=== PATIENT | female | born 2000 | race Caucasian/White ===

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

== ENCOUNTER 2021-01-19 00:26 | Emergency (ER) | payer MEDICAID ==
[~2021-01-19] VITALS: Ht 157 cm; Wt 64.5 kg
[~2021-01-19 00:26] MED LIST changes: +PERM60CR4 TP
[2021-01-19 00:44] LABS: BILIRUBIN,URINE NEGATIVE (NEGATIVE); CLARITY,URINE CLEAR; COLOR,URINE YELLOW; GLUCOSE, URINE (UA) NEGATIVE (NEGATIVE); KETONES,URINE NEGATIVE (NEGATIVE); LEUKOCYTE ESTERASE ,URINE 2+ (NEGATIVE); NITRITE,URINE POSITIVE (NEGATIVE); PH,URINE 6.5 (5-9); PROTEIN,URINE TRACE (NEGATIVE)
[2021-01-19 00:52] LABS: BACTERIA,URINE LARGE /HPF; SQUAMOUS EPITHELIAL CELL,UR 0-2 /HPF; URINE OTHER WBC CLUMPS /HPF; WBC,URINE 25-50 /HPF
[2021-01-19] MEDS ORDERED: ONDANSETRON 4 MG/2 ML (SDV) Z0FRAN IVP ONE (01:15)
[2021-01-19] MEDS ORDERED: KETOROLAC 30 MG/ML VIAL IVP ONE (01:15)
[2021-01-19] MEDS ORDERED: cefTRIAXone 1,000 MG in WATER (STERILE) FOR INJECTION 10 ML IV ONE (01:15)
[2021-01-19] MEDS ORDERED: LACTATED RINGERS 1,000 ML IV ONE (01:15)
--- NOTE | 2021-01-19 01:20 | ED Back Pain ---
General Chief Complaint: Back Problems Stated Complaint: ABD PAIN Nursing Triage Note: WOKE UP WITH LEFT FLANK PAIN RADIATING TO LEFT LOWER ABDOMEN. WORSE X2 HRS. DENIES INJURY. Source of Information: Patient Exam Limitations: No Limitations History of Present Illness Date Seen by Provider: Jan 19, 2021 Time Seen by Provider: 00:37 Initial Comments Patient presents ER by private conveyance with chief complaint that today she started experiencing some left flank and low left lower quadrant abdomen pain and pressure. Dysuria. No fevers or chills. She is having nausea but no vomiting. She rates her pain is about a 9 out of 10. She has not taken anything for it. No history of kidney stones. No history of abdominal surgeries except for a D&C 2 months ago for miscarriage. Allergies and Home Medications Allergies Coded Allergies: No Known Drug Allergies (Unverified , 09/07/13) Home Medications Cefdinir 300 Mg Capsule, 300 MG PO BID Prescribed by: POLINA VIDES on 01/19/21 0328 Hydrocodone/Acetaminophen 1 Each Tablet, 1 TAB PO Q6H PRN for PAIN-MODERATE (5- 7) Prescribed by: POLINA VIDES on 01/19/21 0330 Hydroxyzine Pamoate 25 Mg Capsule, 25 MG PO Q6H PRN for ITCHING AND RASH Prescribed by: POLINA VIDES on 12/14/20 1037 Ondansetron 4 Mg Tab.rapdis, 4 MG PO Q6H PRN for NAUSEA/VOMITING Prescribed by: POLINA VIDES on 01/19/21 0328 Permethrin 60 Gm Cream..g., 60 GM TP q 14 days Prescribed by: POLINA VIDES on 12/14/20 1037 Patient Home Medication List Home Medication List Reviewed: Yes Review of Systems Constitutional: No chills, No diaphoresis, No fever, No malaise EENTM: No ear discharge, No hearing loss Respiratory: No cough, No short of breath Cardiovascular: No chest pain, No palpitations Gastrointestinal: abdominal pain; No constipation, No diarrhea; nausea; No vomiting Genitourinary: see HPI; No discharge; dysuria : No LMP: Jan 04, 2021 Control/STD Prophylaxis: None Musculoskeletal: back pain (Left flank); No joint pain All Other Systems Reviewed Negative Unless Noted: Yes Past Ljfhyfl-Gmlvrh-Fcjwhk Hx Patient Social History Tobacco Use?: Yes Tobacco type used: Cigarettes Smoking Status: Current Everyday Smoker Substance use?: Yes Substance type: Marijuana Substance frequency: Daily Alcohol Use?: Yes Alcohol Frequency: Once in a while Pt feels they are or have been: No Immunizations Up To Date Tetanus Booster (TDap): Less than 5yrs PED Vaccines UTD: Yes Seasonal Allergies Seasonal Allergies: No Past Medical History Surgery/Hospitalization HX: DENIES Surgeries: No Respiratory: No Cardiac: No Neurological: No Last Menstrual Period: Jan 05, 2021 Genitourinary: No Gastrointestinal: No Musculoskeletal: No Endocrine: No HEENT: No Cancer: No Did You Recieve Any Treatments: No Psychosocial: Yes ADD/ADHD, Anxiety, Depression Integumentary: No Blood Disorders: No Adverse Reaction/Blood Tranf: No Family Medical History No Pertinent Family Hx Physical Exam Vital Signs Vital Signs - First Documented 01/19/21 00:32 Temp 36.6 Pulse 94 Resp 18 B/P (MAP) 135/62 (86) Pulse Ox 97 O2 Delivery Room Air Capillary Refill : Less Than 3 Seconds Height, Weight, BMI Height: 5'4.00" Weight: 145lbs. oz. 65.422610ek; 26.00 BMI Method:Stated General Appearance: Anxious, Mild Distress HEENT: PERRL/EOMI, Pharynx Normal, Moist Mucous Membranes Neck: Normal Inspection, Non Tender Cardiovascular: Regular Rate, Rhythm (90s), Normal Peripheral Pulses Respiratory: Lungs Clear, Normal Breath Sounds, No Accessory Muscle Use Gastrointestinal: Normal Bowel Sounds, Soft, Tenderness (Left flank and left lower quadrant.) Back: Normal Inspection, No Vertebral Tenderness, CVA Tenderness (L) (To percussion) Extremity: Normal Capillary Refill, Normal Inspection, Normal Range of Motion, Non Tender, No Calf Tenderness Neurologic/Psychiatric: Alert, Oriented x3, No Motor/Sensory Deficits Skin: Normal Color, Warm/Dry Progress/Results/Core Measures Results/Orders Lab Results Laboratory Tests Test 01/19/21 00:31 01/19/21 01:18 Range/Units Urine Color YELLOW Urine Clarity CLEAR Urine pH 6.5 5-9 Urine Specific [place] <=1.005 1.016-1.022 Urine Protein TRACE H NEGATIVE Urine Glucose (UA) NEGATIVE NEGATIVE Urine Ketones NEGATIVE NEGATIVE Urine Nitrite POSITIVE H NEGATIVE Urine Bilirubin NEGATIVE NEGATIVE Urine Urobilinogen 1.0 < = 1.0 MG/DL Urine Leukocyte Esterase 2+ H NEGATIVE Urine RBC (Auto) NEGATIVE NEGATIVE Urine RBC NONE /HPF Urine WBC 25-50 H /HPF Urine Squamous Epithelial Cells 0-2 /HPF Urine Crystals NONE /LPF Urine Bacteria LARGE H /HPF Urine Casts NONE /LPF Urine Mucus NEGATIVE /LPF Urine Other WBC CLUMPS /HPF Urine Culture Indicated YES White Blood Count 8.4 4.3-11.0 10^3/uL Red Blood Count 4.45 3.80-5.11 10^6/uL Hemoglobin 12.2 11.5-16.0 g/dL Hematocrit 37 35-52 % Mean Corpuscular Volume 84 80-99 fL Mean Corpuscular Hemoglobin 27 25-34 pg Mean Corpuscular Hemoglobin Concent 33 32-36 g/dL Red Cell Distribution Width 13.1 10.0-14.5 % Platelet Count 245 130-400 10^3/uL Mean Platelet Volume 10.3 9.0-12.2 fL Immature Granulocyte % (Auto) 1 % Neutrophils (%) (Auto) 71 42-75 % Lymphocytes (%) (Auto) 15 12-44 % Monocytes (%) (Auto) 12 0-12 % Eosinophils (%) (Auto) 1 0-10 % Basophils (%) (Auto) 0 0-10 % Neutrophils # (Auto) 6.0 1.8-7.8 10^3/uL Lymphocytes # (Auto) 1.3 1.0-4.0 10^3/uL Monocytes # (Auto) 1.0 0.0-1.0 10^3/uL Eosinophils # (Auto) 0.1 0.0-0.3 10^3/uL Basophils # (Auto) 0.0 0.0-0.1 10^3/uL Immature Granulocyte # (Auto) 0.0 0.0-0.1 10^3/uL Sodium Level 137 135-145 MMOL/L Potassium Level 3.7 3.6-5.0 MMOL/L Chloride Level 102 98-107 MMOL/L Carbon Dioxide Level 22 21-32 MMOL/L Anion Gap 13 5-14 MMOL/L Blood Urea Nitrogen 9 7-18 MG/DL Creatinine 0.86 0.60-1.30 MG/DL Estimat Glomerular Filtration Rate > 60 BUN/Creatinine Ratio 10 Glucose Level 86 70-105 MG/DL Calcium Level 8.7 8.5-10.1 MG/DL Corrected Calcium 8.6 8.5-10.1 MG/DL Total Bilirubin 0.5 0.1-1.0 MG/DL Aspartate Amino Transf (AST/SGOT) 15 5-34 U/L Alanine Aminotransferase (ALT/SGPT) 12 0-55 U/L Alkaline Phosphatase 70 40-136 U/L Total Protein 7.1 6.4-8.2 GM/DL Albumin 4.1 3.2-4.5 GM/DL My Orders Orders - POLINA VIDES Ua Culture If Indicated (01/19/21 00:27) Urine Bedside (01/19/21 00:27) Urine Culture (01/19/21 00:31) Ed Iv/Invasive Line Start (01/19/21 01:14) Lactated Ringers (Lr 1000 Ml Iv Solution (01/19/21 01:15) Ketorolac Injection (Toradol Injection) (01/19/21 01:15) Ceftriaxone (Rocephin) (01/19/21 01:15) Cbc With Automated Diff (01/19/21 01:14) Comprehensive Metabolic Panel (01/19/21 01:14) Ct Abd/Pelvis Wo(Kidney Stone) (01/19/21 01:14) Ondansetron Injection (Zofran Injectio (01/19/21 01:15) Medications Given in ED Vital Signs/I&O 01/19/21 01/19/21 00:32 03:35 Temp 36.6 36.7 Pulse 94 80 Resp 18 18 B/P (MAP) 135/62 (86) 128/57 (86) Pulse Ox 97 99 O2 Delivery Room Air Room Air Blood Pressure Mean: 86 Progress Progress Note #1: Time: 01:19 Progress Note Pyelonephritis versus kidney stone. She has heart rate above 90 and if she has a white count she potentially be septic so if that is the case we would offer her stay in the hospital if she wants it. We will give her a dose of Rocephin, a liter of fluids to help flush things along and get a CT to rule out kidney stones. Labs. Zofran for nausea. Progress Note #2: Time: 03:31 Progress Note The patient is pain-free and her heart rates in the 70s. She is much more comfortable. We did discuss observation in the hospital versus going home and since she is feeling much better the patient is adamant she would prefer to go home. We will put her out on cefdinir with some nausea and pain medicines. Diagnostic Imaging Diagonstic Imaging: CT Plain Films/CT/US/NM/MRI: abdomen, pelvis Comments Left hydroureter without stone. Cannot exclude passing of a kidney stone. [facility], [place] NAME: WES JALLOH [facility] REC#: [id number] PT STATUS: DEP ER : 2000 PHYSICIAN: POLINA VIDES MD ADMIT DATE: 01/19/21/ER Signed Date of Exam:01/19/21 CT ABD/PELVIS WO(KIDNEY STONE) PROCEDURE: CT urinary tract, rule out kidney stone. TECHNIQUE: Multiple contiguous axial images were obtained through the abdomen and pelvis without the use of intravenous contrast. Auto Exposure Controls were utilized during the CT exam to meet ALARA standards for radiation dose reduction. INDICATION: Left-sided flank pain. COMPARISON: None. FINDINGS: The heart is unremarkable. The lung bases are clear. There is mild left-sided hydroureteronephrosis without evidence of obstructing calculi. No perinephric fat stranding is seen bilaterally. The right kidney is unremarkable. The liver, spleen, pancreas, and adrenal glands have a normal noncontrast CT appearance. There is no pathologically enlarged mesenteric or retroperitoneal adenopathy. The bowel loops are nondilated. The appendix is visualized in the right lower quadrant and has a normal appearance. A small amount of free fluid is seen in the pelvis. There is no free air. No acute osseous abnormalities. The urinary bladder is nondistended. There is no free air, loculated collection, or adenopathy in the pelvis. IMPRESSION: 1. Mild left-sided hydroureteronephrosis which may represent recently passed calculus. 2. Small amount of free fluid in the pelvis, likely physiologic. Agree with overnight report. Dictated by: Dictated on workstation # [id number] Dict: 01/19/21 0735 Trans: 01/19/21 0749 [facility] [id number] Interpreted by: ANDI COHEN DO Electronically signed by: ANDI COHEN DO 01/19/21 0749 Reviewed: Reviewed [place] Study, Reviewed by Me Departure Impression Primary Impression: Pyelonephritis Disposition: 01 HOME, SELF-CARE Condition: Stable Departure-Patient Inst. Decision time for Depature: 02:36 Referrals: SOFI MESA MD (PCP/Family) Primary Care Physician Patient Instructions: Kidney Infection (DC) Add. Discharge Instructions: Drink lots of fluids. Cefdinir 1 capsule twice a day for the next 10 days. AZO twice a day as necessary for urinary pain. This will turn your urine a dark orange or red color. Zofran 1 tablet every 6 hours as necessary for nausea and/or vomiting. Tylenol 650 mg every 8 hours as necessary for pain. Ibuprofen 800 mg every 8 hours as necessary for pain. Hydrocodone 1 tablet every 6 hours as necessary for severe breakthrough pain. All discharge instructions reviewed with patient and/or family. Voiced understanding. Scripts Hydrocodone/Acetaminophen (Hydrocodone-Acetamin 5-325 mg) 1 Each Tablet 1 TAB PO Q6H PRN for PAIN-MODERATE (5-7), #8 TAB 0 Refills Prov: POLINA VIDES 01/19/21 Ondansetron (Ondansetron Odt) 4 Mg Tab.rapdis 4 MG PO Q6H PRN for NAUSEA/VOMITING, #8 TAB 0 Refills Prov: POLINA VIDES 01/19/21 Cefdinir (Cefdinir) 300 Mg Capsule 300 MG PO BID for 10 Days, #20 CAP 0 Refills Prov: POLINA VIDES 01/19/21 Work/School Note: Work Release Form Date Seen in the Emergency Department: Jan 19, 2021 Return to Work: Jan 21, 2021 Restrictions: No Restrictions POLINA VIDES Jan 19, 2021 01:20
[2021-01-19 01:36] LABS: BASOPHILS % (AUTO) 0 % (0-10); EOSINOPHILS # (AUTO) 0.1 10^3/uL (0.0-0.3); EOSINOPHILS % (AUTO) 1 % (0-10); HEMATOCRIT 37 % (35-52); HEMOGLOBIN 12.2 g/dL (11.5-16.0); LYMPHOCYTES # (AUTO) 1.3 10^3/uL (1.0-4.0); LYMPHOCYTES % (AUTO) 15 % (12-44); MEAN CORPUSCULAR HEMOGLOBIN 27 pg (25-34); MEAN CORPUSCULAR HGB CONC 33 g/dL (32-36); MEAN CORPUSCULAR VOLUME 84 fL (80-99); MEAN PLATELET VOLUME 10.3 fL (9.0-12.2); MONOCYTES % (AUTO) 12 % (0-12); NEUTROPHILS % (AUTO) 71 % (42-75); PLATELET COUNT 245 10^3/uL (130-400); WHITE BLOOD COUNT 8.4 10^3/uL (4.3-11.0)
[2021-01-19 01:51] LABS: ALBUMIN 4.1 GM/DL (3.2-4.5)
[2021-01-19 01:52] LABS: CHLORIDE 102 MMOL/L (98-107); POTASSIUM 3.7 MMOL/L (3.6-5.0); SODIUM 137 MMOL/L (135-145)
[2021-01-19 01:53] LABS: CALCIUM 8.7 MG/DL (8.5-10.1)
[2021-01-19 01:54] LABS: GLUCOSE 86 MG/DL (70-105); TOTAL PROTEIN 7.1 GM/DL (6.4-8.2)
[2021-01-19 01:55] LABS: CARBON DIOXIDE 22 MMOL/L (21-32)
[2021-01-19 01:56] LABS: BILIRUBIN,TOTAL 0.5 MG/DL (0.1-1.0)
[2021-01-19 01:57] LABS: ALKALINE PHOSPHATASE 70 U/L (40-136); CREATININE SERUM 0.86 MG/DL (0.60-1.30); GFR ESTIMATED > 60
[2021-01-19 01:59] LABS: BUN/CREATININE RATIO 10
[2021-01-19 02:00] LABS: ALANINE AMINOTRANSFERASE 12 U/L (0-55)
[2021-01-19] MEDS ORDERED: CEFD300C3 PO (03:28)
[2021-01-19] MEDS ORDERED: ONDA4TAB11 PO (03:28)
[2021-01-19] MEDS ORDERED: ACHD5005 PO (03:28)
[2021-01-19 03:35] VITALS: BP 128/57
--- NOTE | 2021-01-19 07:42 | Diagnostic Imaging Report ---
PROCEDURE: CT urinary tract, rule out kidney stone. TECHNIQUE: Multiple contiguous axial images were obtained through the abdomen and pelvis without the use of intravenous contrast. Auto Exposure Controls were utilized during the CT exam to meet ALARA standards for radiation dose reduction. INDICATION: Left-sided flank pain. COMPARISON: None. FINDINGS: The heart is unremarkable. The lung bases are clear. There is mild left-sided hydroureteronephrosis without evidence of obstructing calculi. No perinephric fat stranding is seen bilaterally. The right kidney is unremarkable. The liver, spleen, pancreas, and adrenal glands have a normal noncontrast CT appearance. There is no pathologically enlarged mesenteric or retroperitoneal adenopathy. The bowel loops are nondilated. The appendix is visualized in the right lower quadrant and has a normal appearance. A small amount of free fluid is seen in the pelvis. There is no free air. No acute osseous abnormalities. The urinary bladder is nondistended. There is no free air, loculated collection, or adenopathy in the pelvis. IMPRESSION: 1. Mild left-sided hydroureteronephrosis which may represent recently passed calculus. 2. Small amount of free fluid in the pelvis, likely physiologic. Agree with overnight report. Dictated by: Dictated on workstation # [id number]
== END 2021-01-19 03:38 | disposition home or self-care (01) ==
LOC: EDUNIT# 00:26 → ER 00:29
DX: N12 Tubulo-interstitial nephritis, not specified as acute or chronic (principal); F41.9 Anxiety disorder, unspecified; F17.210 Nicotine dependence, cigarettes, uncomplicated; Z79.899 Other long term (current) drug therapy
CPT/HCPCS: 36415; 74176; 80053; 81000; 84703; 85025; 87077; 87088; 87186

== ENCOUNTER 2021-09-02 18:08 | Emergency (ER) | payer MEDICAID ==
[~2021-09-02] VITALS: Ht 157 cm; Wt 68.0 kg
[~2021-09-02 18:08] MED LIST changes: +ACHD5005 PO; +ONDA4TAB11 PO
[2021-09-02 18:15] VITALS: BP 131/83
[2021-09-02] MEDS ORDERED: ONDANSETRON 4 MG (ZOFRAN) ORAL DISSOLVE TAB PO STA (18:22)
--- NOTE | 2021-09-02 18:27 | ED Abdominal Pain ---
General Chief Complaint: OB < 20 WEEKS Stated Complaint: CONFIRMATION Source of Information: Patient Exam Limitations: No Limitations History of Present Illness Date Seen by Provider: Sep 02, 2021 Time Seen by Provider: 18:23 Initial Comments To ER with her boyfriend to confirm . She has had nausea and vomiting since waking this morning no diarrhea no abdominal pain no fever no chills. She had a positive test a few weeks ago last menstrual was 07/30/2021. She had a miscarriage requiring dissection and curettage last year. Timing/Duration: 12 Hours Severity/Quality: Moderate Location: Generalized Abdomen Radiation: No Radiation Associated Symptoms: Nausea/Vomiting Allergies and Home Medications Allergies Coded Allergies: No Known Drug Allergies (Unverified , 09/07/13) Patient Home Medication List Home Medication List Reviewed: Yes Cefdinir (Cefdinir) 300 Mg Capsule, 300 MG PO BID Prescribed by: POLINA VIDES on 01/19/21 0328 Hydrocodone/Acetaminophen (Hydrocodone-Acetamin 5-325 mg) 1 Each Tablet, 1 TAB PO Q6H PRN for PAIN-MODERATE (5-7) Prescribed by: POLINA VIDES on 01/19/21 0330 Hydroxyzine Pamoate (Vistaril) 25 Mg Capsule, 25 MG PO Q6H PRN for ITCHING AND RASH Prescribed by: POLINA VIDES on 12/14/20 1037 Ondansetron (Ondansetron Odt) 4 Mg Tab.rapdis, 4 MG PO Q6H PRN for NAUSEA/VOMITING Prescribed by: POLINA VIDES on 01/19/21 0328 Permethrin (Permethrin) 60 Gm Cream..g., 60 GM TP q 14 days Prescribed by: POLINA VIDES on 12/14/20 1037 Review of Systems Review of Systems Constitutional: see HPI EENTM: No Symptoms Reported Respiratory: No Symptoms Reported Cardiovascular: No Symptoms Reported Gastrointestinal: See HPI, Abdominal Pain Musculoskeletal: no symptoms reported Skin: no symptoms reported Psychiatric/Neurological: No Symptoms Reported Endocrine: No Symptoms Reported Hematologic/Lymphatic: No Symptoms Reported Past Mbipyee-Apudqp-Ynrzxd Hx Immunizations Up To Date Tetanus Booster (TDap): Less than 5yrs PED Vaccines UTD: Yes Seasonal Allergies Seasonal Allergies: No Past Medical History Surgery/Hospitalization HX: DENIES Surgeries: No Respiratory: No Cardiac: No Neurological: No Genitourinary: No Gastrointestinal: No Musculoskeletal: No Endocrine: No HEENT: No Cancer: No Did You Recieve Any Treatments: No Psychosocial: Yes ADD/ADHD, Anxiety, Depression Integumentary: No Blood Disorders: No Adverse Reaction/Blood Tranf: No Family Medical History No Pertinent Family Hx Physical Exam Vital Signs Vital Signs - First Documented 09/02/21 18:15 Temp 36.3 Pulse 81 Resp 16 B/P (MAP) 131/83 (99) Pulse Ox 98 Capillary Refill : Height/Weight/BMI Height: 5'4.00" Weight: 145lbs. oz. 65.804346lt; 26.00 BMI Method:Stated General Appearance: WD/WN, no apparent distress HEENT: PERRL/EOMI, normal ENT inspection Neck: non-tender, full range of motion Respiratory: normal breath sounds, no respiratory distress, no accessory muscle use Cardiovascular: regular rate, rhythm, no murmur Gastrointestinal: normal bowel sounds, non tender, soft Neurologic/Psychiatric: alert, normal mood/affect, oriented x 3 Skin: normal color, warm/dry Progress/Results/Core Measures Results/Orders Lab Results Laboratory Tests Test 09/02/21 18:25 Range/Units Urine Color YELLOW Urine Clarity CLEAR Urine pH 6.0 5-9 Urine Specific [place] >=1.030 1.016-1.022 Urine Protein TRACE H NEGATIVE Urine Glucose (UA) NEGATIVE NEGATIVE Urine Ketones 2+ H NEGATIVE Urine Nitrite NEGATIVE NEGATIVE Urine Bilirubin NEGATIVE NEGATIVE Urine Urobilinogen 0.2 < = 1.0 MG/DL Urine Leukocyte Esterase NEGATIVE NEGATIVE Urine RBC (Auto) NEGATIVE NEGATIVE Urine RBC NONE /HPF Urine WBC NONE /HPF Urine Squamous Epithelial Cells 0-2 /HPF Urine Renal Epithelial Cells NONE /HPF Urine Crystals NONE /LPF Urine Bacteria TRACE /HPF Urine Casts NONE /LPF Urine Mucus SMALL H /LPF Urine Culture Indicated NO My Orders Orders - STEPHIE MIXON APRN Ua Culture If Indicated (09/02/21 18:22) Urine Bedside (09/02/21 18:22) Drug Screen Stat (Urine) (09/02/21 18:22) Ondansetron Oral Dissolve Tab (Zofran (09/02/21 18:22) Vital Signs/I&O 09/02/21 18:15 Temp 36.3 Pulse 81 Resp 16 B/P (MAP) 131/83 (99) Pulse Ox 98 Departure Impression Primary Impression: test positive Additional Impression: Nausea & vomiting Disposition: 01 HOME, SELF-CARE Condition: Stable Departure-Patient Inst. Decision time for Depature: 18:29 Referrals: SOFI MESA MD (PCP/Family) Primary Care Physician Patient Instructions: Nausea and Vomiting of Add. Discharge Instructions: 1. Call [facility] tomorrow to make an appointment to be seen for follow-up. Return to ER for any concerns. You must stop smoking. All discharge instructions reviewed with patient and/or family. Voiced understanding. STEPHIE MIXON APRN Sep 02, 2021 18:27
[2021-09-02 18:32] LABS: BILIRUBIN,URINE NEGATIVE (NEGATIVE); CLARITY,URINE CLEAR; COLOR,URINE YELLOW; GLUCOSE, URINE (UA) NEGATIVE (NEGATIVE); KETONES,URINE 2+ (NEGATIVE); LEUKOCYTE ESTERASE ,URINE NEGATIVE (NEGATIVE); NITRITE,URINE NEGATIVE (NEGATIVE); PROTEIN,URINE TRACE (NEGATIVE)
[2021-09-02 18:47] LABS: BACTERIA,URINE TRACE /HPF; SQUAMOUS EPITHELIAL CELL,UR 0-2 /HPF
[2021-09-02 18:49] LABS: AMPHETAMINE SCREEN, URINE NEGATIVE (NEGATIVE); BARBITURATE SCREEN URINE NEGATIVE (NEGATIVE); BENZODIAZEPINES SCREEN URINE NEGATIVE (NEGATIVE); CANNABINOID SCREEN, URINE POSITIVE (NEGATIVE); COCAINE SCREEN URINE NEGATIVE (NEGATIVE); METHADONE STAT NEGATIVE (NEGATIVE); METHAMPHETAMINE SCREEN URINE S NEGATIVE (NEGATIVE); OPIATE SCREEN URINE NEGATIVE (NEGATIVE); OXYCODONE STAT NEGATIVE (NEGATIVE); PROPOXYPHENE STAT NEGATIVE (NEGATIVE); TRICYCLIC ANTIDEPRESSANTS SCRE NEGATIVE (NEGATIVE)
== END 2021-09-02 18:47 | disposition left against medical advice (07) ==
LOC: EDUNIT# 18:08 → ER 18:11
DX: R11.2 Nausea with vomiting, unspecified (principal); Z32.01 Encounter for pregnancy test, result positive
CPT/HCPCS: 80306; 81000; 84703; 99283

== ENCOUNTER 2021-12-15 01:34 | Outpatient (CLI) | payer MEDICAID ==
[~2021-12-15] VITALS: Ht 160 cm; Wt 72.5 kg
[2021-12-15 01:52] VITALS: BP 134/81
[2021-12-15 01:55] VITALS: BP 134/81
[2021-12-15 01:58] LABS: CLARITY,URINE CLOUDY; COLOR,URINE AMBER; GLUCOSE, URINE (UA) NEGATIVE (NEGATIVE); KETONES,URINE NEGATIVE (NEGATIVE); LEUKOCYTE ESTERASE ,URINE TRACE (NEGATIVE); NITRITE,URINE NEGATIVE (NEGATIVE); PROTEIN,URINE 1+ (NEGATIVE)
[2021-12-15 02:05] LABS: BACTERIA,URINE TRACE /HPF; BILIRUBIN,URINE 1+ (NEGATIVE); RBC,URINE 50-100 /HPF; WBC,URINE RARE /HPF
[2021-12-15] MEDS ORDERED: LEVO112C4 PO (02:12)
[2021-12-15 02:13] VITALS: BP 134/81
[2021-12-15 02:20] LABS: AMPHETAMINE SCREEN, URINE NEGATIVE (NEGATIVE); BARBITURATE SCREEN URINE NEGATIVE (NEGATIVE); BENZODIAZEPINES SCREEN URINE NEGATIVE (NEGATIVE); CANNABINOID SCREEN, URINE POSITIVE (NEGATIVE); COCAINE SCREEN URINE NEGATIVE (NEGATIVE); METHADONE STAT NEGATIVE (NEGATIVE); OPIATE SCREEN URINE NEGATIVE (NEGATIVE); OXYCODONE STAT NEGATIVE (NEGATIVE); PROPOXYPHENE STAT NEGATIVE (NEGATIVE); TRICYCLIC ANTIDEPRESSANTS SCRE NEGATIVE (NEGATIVE)
[2021-12-15 02:42] VITALS: BP 134/81
== END 2021-12-15 02:38 | disposition home or self-care (01) ==
LOC: WSo 01:34 → LDRP 01:35 → WSo 02:38
PROVIDERS: ATTEND Family Medicine
DX: O46.92 Antepartum hemorrhage, unspecified, second trimester (principal); Z3A.21 21 weeks gestation of pregnancy
CPT/HCPCS: 80306; 81000; 99212

== ENCOUNTER 2021-12-17 16:33 | Outpatient (CLI) | payer MEDICAID ==
[~2021-12-17] VITALS: Ht 157.5 cm; Wt 73.8 kg
[~2021-12-17 16:33] MED LIST changes: +LEVO112C4 PO
[2021-12-17 17:15] VITALS: BP 116/59
[2021-12-17 17:31] LABS: BILIRUBIN,URINE NEGATIVE (NEGATIVE); CLARITY,URINE CLEAR; COLOR,URINE YELLOW; GLUCOSE, URINE (UA) NEGATIVE (NEGATIVE); KETONES,URINE NEGATIVE (NEGATIVE); LEUKOCYTE ESTERASE ,URINE 2+ (NEGATIVE); NITRITE,URINE NEGATIVE (NEGATIVE); PROTEIN,URINE NEGATIVE (NEGATIVE)
[2021-12-17 17:39] LABS: BACTERIA,URINE LARGE /HPF; WBC,URINE 25-50 /HPF
[2021-12-17 17:40] LABS: YEAST,URINE FEW /HPF
--- NOTE | 2021-12-18 08:37 | Physician Query-Final Dx ---
Clinic Account Progress/Dx Physician Query: Please give diagnosis Please include # weeks gestation Date of Service Dec 17, 2021 at 16:33 YURIY,JulDec 18, 2021 08:37
== END 2021-12-17 18:11 ==
LOC: WSo 16:33 → LDRP 16:33 → WSo 18:11
PROVIDERS: ATTEND Family Medicine
DX: Z34.92 Encounter for supervision of normal pregnancy, unspecified, second trimester (principal); Z3A.21 21 weeks gestation of pregnancy
CPT/HCPCS: 81000; 87088; G0463; 87077; 99212

== ENCOUNTER 2022-01-26 06:56 | Inpatient (IN) | payer MEDICAID ==
[~2022-01-26] VITALS: Ht 157.5 cm; Wt 74.4 kg
[2022-01-26] VITALS (12 sets, daily range): BP systolic 101–133; BP diastolic 56–89
[2022-01-26] MEDS ORDERED: CITRIC ACID/SOB CIT (BICITRA) 30 ML UDC ONE (07:44)
[2022-01-26] MEDS ORDERED: METOCLOPRAMIDE INJ 10 MG/2 ML (REGLAN) ONE (07:44)
[2022-01-26] MEDS ORDERED: AZITHROMYCIN INJECTION 500 MG/5 ML VIAL ONE ×2 (07:44→07:51)
[2022-01-26] MEDS ORDERED: NS (IVPB) 50 ML ONE ×2 (07:44→07:52)
[2022-01-26] MEDS ORDERED: fentaNYL INJ 100 MCG/2 ML AMP ONE (07:45)
[2022-01-26] MEDS ORDERED: NS (IVPB) 250 ML ONE ×2 (07:45→07:53)
[2022-01-26] MEDS ORDERED: ONDANSETRON 4 MG/2 ML (SDV) Z0FRAN ONE (07:45)
[2022-01-26] MEDS ORDERED: ceFAZolin 2 GM IV Premixed 50 ML ONE (07:45)
[2022-01-26] MEDS ORDERED: OXYTOCIN PRE-MIX DRIP 1,000 ML IV ONE (07:45)
[2022-01-26] MEDS ORDERED: FAMOTIDINE 20MG/2ML IV (PEPCID) ONE (07:45)
[2022-01-26] MEDS ORDERED: FAMOTIDINE 20MG/2ML IV (PEPCID) IV ONE (07:45)
[2022-01-26] MEDS ORDERED: METOCLOPRAMIDE INJ 10 MG/2 ML (REGLAN) IV ONE (07:45)
[2022-01-26] MEDS ORDERED: CITRIC ACID/SOB CIT (BICITRA) 30 ML UDC PO ONE (07:45)
[2022-01-26] MEDS ORDERED: ceFAZolin 2 GM IV Premixed 50 ML IV ONE (07:45)
[2022-01-26] MEDS ORDERED: AZITHROMYCIN INJECTION 500 MG in NS (IVPB) 250 ML IV ONE (07:45)
[2022-01-26] MEDS ORDERED: LACTATED RINGERS 1,000 ML IV PRN ×2 (07:45)
--- NOTE | 2022-01-26 07:51 | Pre-Procedure Progress Note ---
Pre-Procedure Progress Note H&P Reviewed The H&P is pending Date H&P Reviewed: Jan 26, 2022 Time H&P Reviewed: 07:30 Pre-Procedure Diagnosis: Twins, labor, malpresentation Drop in patient 7 cm bedsid US twin A cephalic, Twin B breech. Risks discussed and consented. SHARRON LEE MD Jan 26, 2022 07:51
[2022-01-26 07:56] LABS: BASOPHILS % (AUTO) 0 % (0-10); EOSINOPHILS # (AUTO) 0.1 10^3/uL (0.0-0.3); EOSINOPHILS % (AUTO) 1 % (0-10); HEMATOCRIT 32 % (35-52); HEMOGLOBIN 11.1 g/dL (11.5-16.0); LYMPHOCYTES # (AUTO) 1.6 10^3/uL (1.0-4.0); LYMPHOCYTES % (AUTO) 18 % (12-44); MEAN CORPUSCULAR HEMOGLOBIN 30 pg (25-34); MEAN CORPUSCULAR HGB CONC 35 g/dL (32-36); MEAN CORPUSCULAR VOLUME 87 fL (80-99); MEAN PLATELET VOLUME 10.2 fL (9.0-12.2); MONOCYTES # (AUTO) 0.7 10^3/uL (0.0-1.0); MONOCYTES % (AUTO) 8 % (0-12); NEUTROPHILS # (AUTO) 6.4 10^3/uL (1.8-7.8); NEUTROPHILS % (AUTO) 73 % (42-75); PLATELET COUNT 230 10^3/uL (130-400); WHITE BLOOD COUNT 8.9 10^3/uL (4.3-11.0)
--- NOTE | 2022-01-26 07:57 | History & Physical-OB/GYN ---
History of Present Illness History of Present Illness Reason for visit/HPI 21 yo G2 Po twins breech twin B on bedside US presented in advanced labor at 7 cm. care at another facility and records not available. Symptoms started early this am. No ROM, pre eclampsia symptoms. Date of Admission 01/26/2022 Date Seen by a Provider: Jan 26, 2022 Time Seen by a Provider: 07:30 I consulted on this patient on 01/26/22 07:51 Attending Physician No,Local Physician Admitting Physician Admitting Physician: Attending Physician: Sandor Lee DO Consult Allergies and Home Medications Allergies Coded Allergies: No Known Drug Allergies (Unverified , 09/07/13) Patient Home Medication List Home Medication List Reviewed: Yes Levothyroxine Sodium (Levothyroxine) 112 Mcg Capsule, 112 MCG PO, (Reported) Entered as Reported by: TYRELL JACKSON on 12/15/21211 Past Mjxudrf-Yiezyb-Hxolgc Hx Patient Social History Drug of Choice: THC DAILY 2nd Hand Smoke Exposure: No Recent Hopitalizations: No (DENIES HX) Immunizations Up To Date Tetanus Booster (TDap): Less than 5yrs Pediatric: Yes Date of Influenza Vaccine: Jul 06, 2020 Seasonal Allergies Seasonal Allergies: No Surgeries No Respiratory No Cardiovascular No Neurological No Genitourinary No Gastrointestinal No Musculoskeletal No Endocrine History of Endocrine Disorders: No HEENT History of HEENT Disorders: No Cancer No Did You Recieve Any Treatments: No Psychosocial History of Psychiatric Problem: Yes Behavioral Health Disorders: ADD/ADHD, Anxiety, Depression Integumentary History of Skin or Integumenta: No Blood Transfusions History of Blood Disorders: No Adverse Reaction to a Blood Tr: No Family Medical History Significant Family History: No Pertinent Family Hx Review of Systems Constitutional: No no symptoms reported, No see HPI, No diaphoresis, No dizziness, No malaise, No weakness, No weight gain, No weight loss, No other Respiratory: no symptoms reported Cardiovascular: no symptoms reported Gastrointestinal: no symptoms reported Genitourinary: no symptoms reported : Yes Musculoskeletal: no symptoms reported Skin: no symptoms reported Psychiatric/Neurological: No Symptoms Reported Physical Exam Physical Exam Vital Signs Capillary Refill : General Appearance: No Apparent Distress, WD/WN Respiratory: Chest Non Tender, Lungs Clear, Normal Breath Sounds, No Accessory Muscle Use, No Respiratory Distress Cardiovascular: Regular Rate, Rhythm, No Edema, No Gallop, No JVD, Normal Peripheral Pulses Abdominal: normal bowel sounds, non tender, soft, no organomegaly, no pulsatile mass Pelvic Exam: normal external exam, normal adnexa, no cerv. motion tender, no masses Extremity: Normal Capillary Refill, Normal Inspection, Normal Range of Motion, Non Tender, No Calf Tenderness, No Pedal Edema Assessment/Plan Assessment and Plan H&P reviewed. The patient was examined and there are no changes to the H&P. A preoperative time out was performed in the presence of the preoperative nurse and consisted of my going over the paper consent with her as well as confirming her identity using her identification bracelet, and she gave her name, , procedure planned, planned surgeon and then confirmed her signature on the paper consent (which contained her name, and surgery information) is authentic. All her questions were answered and concerns addressed. Patient identification (Correct identification using 2 patient identifiers): Yes Signed consent obtained with correct procedure verified: Yes Site marked and verified (patient involved in site marking if possible): Meets Exemption Admission Diagnosis Admission Status: Inpatient Order (span 2 midnights) Reason for Inpatient Admission: See above SHARRON LEE MD Jan 26, 2022 07:57
[2022-01-26] MEDS ORDERED: KETAMINE HCL 100 MG/ML 5 ML VIAL ONE (08:10)
[2022-01-26] MEDS ORDERED: MIDAZOLAM 2 MG/2 ML (VERSED) VIAL ONE (08:13)
[2022-01-26] MEDS ORDERED: KETOROLAC 30 MG/ML VIAL ONE (08:30)
[2022-01-26] MEDS ORDERED: ONDANSETRON 4 MG/2 ML (SDV) Z0FRAN IVP PRN (09:15)
[2022-01-26] MEDS ORDERED: TETANUS,DIPTH,PERTUSS P/F (BOOSTRIX) 0.5 ML VIAL IM SCH (09:15)
[2022-01-26] MEDS ORDERED: NALOXONE 0.4 MG/ML 1 ML (NARCAN) VIAL IV PRN (09:15)
[2022-01-26] MEDS ORDERED: MEPERIDINE (DEMEROL) INJ 50 MG/ML IVP ONE (09:15)
[2022-01-26] MEDS ORDERED: METHYLERGONOVINE 0.2 MG/ML (METHERGINE) AMP IM PRN (09:15)
[2022-01-26] MEDS ORDERED: OXYTOCIN PRE-MIX DRIP 500 ML IV SCH (09:15)
[2022-01-26] MEDS ORDERED: morphine INJ 10 MG/ML 1ML (SYR OR VIAL) IVP ONE (09:15)
[2022-01-26] MEDS ORDERED: PROMETHAZINE INJ 25 MG/ML (PHENERGAN) AMP IVP ONE (09:15)
[2022-01-26] MEDS ORDERED: MEASLES,MUMPS,RUBELLA 1 EA INJ SC SCH (09:15)
[2022-01-26] MEDS ORDERED: morphine INJ 4 MG/ML 1 ML (VIAL/SYRINGE) IV PRN (09:15)
[2022-01-26] MEDS ORDERED: HYDROmorphone 2 MG/ML VIAL (DILAUDID) IV ONE (09:15)
--- NOTE | 2022-01-26 09:18 | Cesarean Section Operative ---
Procedure Procedure Note Pre-operative Diagnosis: Renata Rios is a (21 /Para 2 /0 , Gestational Age (wks) with [Twins, labor, malpresentation of twin B] Post-operative Diagnosis: same [] Procedure: [] Classical section Physician: SHARRON LEE Concrete Boom Operator: [none] Estimated blood loss: [500] mL Disposition: [stable] Findings: Pending findings, normal appearing uterus, tubes, and ovaries. Procedure Details: The patient was seen in pre-op and the procedure was discussed with the patient in full, including the risks, benefits, and alternatives. All questions were answered. The patient was taken to the operating room and a time out was performed, verifying patient and procedure. After spinal anesthesia was placed by our anesthesia colleagues, the patient was placed in the dorsal supine with leftward tilt for uterine displacement.~ Her abdomen was then prepped and draped in the typical sterile fashion. A modified Pfannenstiel skin incision using the Misgav Ladech technique was made using a scalpel and carried down through the underlying fascia. The peritoneum was identified and entered bluntly in the midline. This was then stretched laterally using manual strength. After entering the abdominal cavity and confirming lack of intraperitoneal adhesions, a large Bobby retractor was placed and the lower uterine segment was visualized. A bladder flap was created with the use of Metzenbaum scissors.~ A metzenbaum scissor was utilized to make a clasical uterine incision. Amniotomy was performed with an Allis clamp with return of clear fluid. The Twin A 's head was gently grasped and brought to the level of the incision. Fundal pressure was applied and was delivered without difficulty. Mouth and nares were suctioned with bulb suction. After the umbilical cord was clamped and cut, the infant was handed off to the pediatric staff. Amniotomy was again performed with an Allis clamp with return of clear fluid. Twin B infant had an internal cephalic version and the head was gently grasped and brought to the level of the incision. Fundal pressure was applied and was delivered without difficulty. Mouth and nares were suctioned with bulb suction. After the umbilical cord was clamped and cut, the was handed off to the pediatric staff. The Twin B cord was marked with an umbilical cord clamp. The placenta was delivered intact via uterine massage. The uterus was exteriorized and cleared of all clots and debris. The uterine incision was closed using 0 Vicryl in a running locked fashion. A second imbricated layer was placed using 0 Vicryl in a running fashion as well. There was a bilateral laceration of the lower uterine segment at its caudal end due to a deply presenting Twin A head. It was also closed in the same manner with 0 Vicryl in a running locked fashion. A second imbricated layer was placed using 0 Vicryl in a running fashion. The uterus was flexed forward and the posterior rectouterine space was inspected and cleared of all clots and debris. Again the hysterotomy site was examined and hemostasis was observed. The bilateral tubes and ovaries appeared normal. The uterus was placed back into the abdominal cavity and abdominal gutters were cleared of all clots and debris. A final check of the uterine incision showed it to be hemostatic. The fascia was closed with 0 Vicryl in a running fashion. The subcutaneous space was hemostatic, and irrigated. The subcutaneous space was closed with 3-0 Vicryl in 2 running suture layers of stitches. The skin was then closed using 4-0 Monocryl in a running subcuticular fashion. The skin edges were reapproximated together and were hemostatic. Dermabond was placed. A pressure dressing was applied. All sponge, lap and needle counts were correct at the end of the procedure per nursing. Vitals - Labs Labs Laboratory Tests 01/26/22 07:39: White Blood Count 8.9, Red Blood Count 3.69L, Hemoglobin 11.1L, Hematocrit 32L, Mean Corpuscular Volume 87, Mean Corpuscular Hemoglobin 30, Mean Corpuscular Hemoglobin Concent 35, Red Cell Distribution Width 13.1, Platelet Count 230, Mean Platelet Volume 10.2, Immature Granulocyte % (Auto) 1, Neutrophils (%) (Auto) 73, Lymphocytes (%) (Auto) 18, Monocytes (%) (Auto) 8, Eosinophils (%) (Auto) 1, Basophils (%) (Auto) 0, Neutrophils # (Auto) 6.4, Lymphocytes # (Auto) 1.6, Monocytes # (Auto) 0.7, Eosinophils # (Auto) 0.1, Basophils # (Auto) 0.0, Immature Granulocyte # (Auto) 0.1 SHARRON LEE MD Jan 26, 2022 09:18
[2022-01-26 09:55] LABS: AMPHETAMINE SCREEN, URINE NEGATIVE (NEGATIVE); BARBITURATE SCREEN URINE NEGATIVE (NEGATIVE); BENZODIAZEPINES SCREEN URINE NEGATIVE (NEGATIVE); CANNABINOID SCREEN, URINE POSITIVE (NEGATIVE); COCAINE SCREEN URINE NEGATIVE (NEGATIVE); METHADONE STAT NEGATIVE (NEGATIVE); OPIATE SCREEN URINE NEGATIVE (NEGATIVE); OXYCODONE STAT NEGATIVE (NEGATIVE); PROPOXYPHENE STAT NEGATIVE (NEGATIVE); TRICYCLIC ANTIDEPRESSANTS SCRE NEGATIVE (NEGATIVE)
[2022-01-26] MEDS: ACETAMINOPHEN 500 MG TAB (TYLENOL) PO SCH ×3 (11:13→23:53)
[2022-01-26] MEDS ORDERED: CATHETER FLUSH 10 ML SYR IV SCH (14:00)
[2022-01-26] MEDS: KETOROLAC 15 MG/ML VIAL IV SCH ×2 (15:03→21:05)
[2022-01-26] MEDS ORDERED: ceFAZolin INJECTION 1,000 MG ONE (17:27)
[2022-01-26] MEDS ORDERED: NS (IVPB) 100 ML ONE (17:29)
[2022-01-26] MEDS ORDERED: NS (IVPB) 0 ML ONE (17:43)
[2022-01-26] MEDS: ceFAZolin INJECTION 1,000 MG in NS (IVPB) 50 ML IV SCH (17:44)
[2022-01-26] MEDS: DOCUSATE SODIUM 100 MG (COLACE) CAP PO SCH (21:05)
[2022-01-27 01:35] VITALS: BP 118/69
[2022-01-27] MEDS: ceFAZolin INJECTION 1,000 MG in NS (IVPB) 50 ML IV SCH (01:45)
[2022-01-27] MEDS: KETOROLAC 15 MG/ML VIAL IV SCH (03:36)
[2022-01-27] MEDS: ACETAMINOPHEN 500 MG TAB (TYLENOL) PO SCH ×3 (05:59→18:15)
[2022-01-27] MEDS ORDERED: NICOTINE 7 MG (NICODERM) PATCH TD ONE (07:30)
--- NOTE | 2022-01-27 07:44 | Postpartum Progress Note ---
Post Op Post-operative Day #[1] Subjective: Patient is without complaints. Ambulating, voiding after del cid removed. Tolerating a regular diet without nausea or vomiting. Normal lochia. Pain is well controlled with oral pain medications. Passing flatus. Objective: [AF, VSS, good Urine Output] Physical Exam: General - Alert and oriented, no apparent distress Chest/ CV- normal Abdomen - Soft, appropriately tender to palpation, non-distended, fundus firm at umbilicus, normal bowel sounds Incision - clean, dry and intact; no erythema or induration, no drainage Extremities - no edema, negative Brian's bilaterally Assessment: [] post-operative day # [1], status post [Classical section]. Recovering well, hemodynamically stable Plan: Routine post-operative care. Encourage breast feeding. Encourage ambulation. VTE prophylaxis: SCDs. Ferrous sulfate supplementation. Plan for discharge [probably tomorrow]. I will check her out to the coupon and bond collection clerk OBGYN since I am leaving town for my next machine woodworking sander position. In patient's mother's p[resence, I counseled Renata on the type of Section she had, "Classical" large vertical incision, and that she will have to have a repeat for every and we discussed the rising risks from each to include but not be limited to placental abnormalities such as acreta, previa, abruption, and increased adhesions, hysterectomy risk, etc. Vitals - Labs Vital Signs - I&O Vital Signs Date Time Temp Pulse Resp B/P (MAP) Pulse Ox O2 Delivery O2 Flow Rate FiO2 01/27/22 01:35 36.2 65 18 118/69 (85) 97 Room Air 01/26/22 21:09 36.3 75 18 133/89 (104) 98 Room Air 01/26/22 16:15 36.3 66 18 120/75 (90) 98 Room Air 01/26/22 12:30 36.5 62 16 129/58 (81) 98 Room Air 01/26/22 10:15 36.2 69 16 129/58 (81) 99 Room Air I & O 01/27/22 07:00 Intake Total 2250 ml Output Total 3000 ml Balance -750 ml Labs CBC, Trepemona Pall., rubella IgG ordered. SHARRON LEE MD Jan 27, 2022 07:44
[2022-01-27 10:37] VITALS: BP 111/68
[2022-01-27] MEDS: DOCUSATE SODIUM 100 MG (COLACE) CAP PO SCH ×2 (10:37→21:56)
[2022-01-27] MEDS: IBUPROFEN 600 MG (MOTRIN) TAB PO SCH ×4 (10:37→20:51)
[2022-01-27 10:39] LABS: BASOPHILS % (AUTO) 0 % (0-10); EOSINOPHILS % (AUTO) 0 % (0-10); HEMATOCRIT 31 % (35-52); HEMOGLOBIN 10.6 g/dL (11.5-16.0); LYMPHOCYTES # (AUTO) 1.3 10^3/uL (1.0-4.0); LYMPHOCYTES % (AUTO) 10 % (12-44); MEAN CORPUSCULAR HEMOGLOBIN 30 pg (25-34); MEAN CORPUSCULAR HGB CONC 34 g/dL (32-36); MEAN CORPUSCULAR VOLUME 86 fL (80-99); MEAN PLATELET VOLUME 9.6 fL (9.0-12.2); MONOCYTES # (AUTO) 0.7 10^3/uL (0.0-1.0); MONOCYTES % (AUTO) 6 % (0-12); NEUTROPHILS # (AUTO) 10.7 10^3/uL (1.8-7.8); NEUTROPHILS % (AUTO) 83 % (42-75); PLATELET COUNT 183 10^3/uL (130-400); WHITE BLOOD COUNT 12.8 10^3/uL (4.3-11.0)
--- NOTE | 2022-01-27 13:19 | Anesthesia-Regional Post-Op ---
Regional Patient Condition Mental Status: Alert, Oriented x3 Circulation: Same as Pre-Op Headache: Absent Sensation: Full Recovery Motor Block: Absent Post Op Complications Complications None Follow Up Care/Instructions Patient Instructions None needed. Anesthesia/Patient Condition Patient is doing well, no complaints, stable vital signs, no apparent adverse anesthesia problems. No complications reported per nursing. FARHEEN BLACKWELL CRNA Jan 27, 2022 13:19
[2022-01-27 18:18] VITALS: BP 125/68
[2022-01-28] MEDS: ACETAMINOPHEN 500 MG TAB (TYLENOL) PO SCH ×3 (00:08→10:13)
[2022-01-28 00:30] VITALS: BP 126/57
[2022-01-28] MEDS: IBUPROFEN 600 MG (MOTRIN) TAB PO SCH ×3 (00:58→12:38)
[2022-01-28 06:23] VITALS: BP 114/59
[2022-01-28] MEDS ORDERED: PATCH REMOVAL TP ONE (08:59)
[2022-01-28 10:12] VITALS: BP 136/66
[2022-01-28] MEDS: DOCUSATE SODIUM 100 MG (COLACE) CAP PO SCH (10:14)
--- NOTE | 2022-01-28 10:47 | Postpartum Progress Note ---
Note Note Day # 2 Subjective: Patient is without complaints. Ambulating, voiding. Tolerating a regular diet without nausea or vomiting. Normal lochia. Pain is well controlled with oral pain medications. Physical Exam: General - Alert and oriented, no apparent distress Abdomen - Soft, appropriately tender to palpation, non-distended, fundus firm at umbilicus; incision c/d/i Extremities - no edema, negative Brian's bilaterally Assessment: Post- day # 2, status post PLTCS. Recovering well, hemodynamically stable Acute blood loss anemia Plan: Routine care. Encourage breast feeding. Encourage ambulation. Ferrous sulfate supplementation. Plan for discharge today Vitals - Labs Vital Signs - I&O Vital Signs Date Time Temp Pulse Resp B/P (MAP) Pulse Ox O2 Delivery O2 Flow Rate FiO2 01/28/22 10:12 36.0 77 18 136/66 (89) 98 Room Air 01/28/22 06:23 36.1 66 18 114/59 (77) 97 Room Air 01/28/22 00:30 36.2 73 18 126/57 (80) 97 Room Air 01/27/22 18:18 36.4 77 18 125/68 (87) 96 Room Air I & O 01/28/22 07:00 Intake Total 600 ml Balance 600 ml EDUARDO GARCIA SALES DATA ANALYST Jan 28, 2022 10:46
[2022-01-28] MEDS ORDERED: IBUP-844 PO (10:48)
[2022-01-28] MEDS ORDERED: OXC5T PO (10:48)
[2022-01-28] MEDS ORDERED: DOCU100C37 PO (10:48)
--- NOTE | 2022-01-28 10:50 | Discharge Inst-Women's Service ---
Discharge Inst-Women's Serv Depart Medication/Instructions New, Converted or Re-Newed RX: Transmitted to Pharmacy Consults/Follow Up Additional Follow Up: Yes (1wk incision check and 6wk follow-up) Activity Activity: Activity as Tolerated Driving Instructions: No Driving for 1 Week NO SMOKING: NO SMOKING Nothing Inside Vagina: No Douching, No [place], No Tampons Diet Discharge Diet: No Restrictions Symptoms to Report to DrJoao: Bleeding Excessive, Fever Over 101 Degrees F, Vaginal Bleeding Increase For Any Problems or Questions: Contact Your Physician Skin/Wound Care Infection Signs and Symptoms: Increased Redness, Foul Odor of Wound, Increased Drainage, Temperature Above 101 F Operative Area Clean and Dry: Keep Incision Clean/Dry Stitches/[place]/Dermabond: Dermabond Bathing Instructions: EDUARDO White APRN Jan 28, 2022 10:50
== END 2022-01-28 12:50 | disposition home or self-care (01) | DRG 787 ==
LOC: WSo 06:56 → LDRP 06:58 → WSo 07:00 → WS 10:12
PROVIDERS: ADMIT Obstetrics & Gynecology; ATTEND Obstetrics & Gynecology
PROC: 10D00Z0 Extraction of Products of Conception, High, Open Approach (ICD-10-PCS; principal; 2022-01-26 07:59)
DX: O60.12X0 Preterm labor second trimester with preterm delivery second trimester, not applicable or unspecified (principal); D62 Acute posthemorrhagic anemia; O30.032 Twin pregnancy, monochorionic/diamniotic, second trimester; Z3A.26 26 weeks gestation of pregnancy; Z37.2 Twins, both liveborn; O90.81 Anemia of the puerperium
CPT/HCPCS: 36415; 80306; 85025; 85027; 86762; 86780; 86850; 86900; 86901; 94664; 99212

== ENCOUNTER 2022-10-18 13:11 | Emergency (ER) | payer MEDICAID ==
[~2022-10-18] VITALS: Ht 157 cm; Wt 69.8 kg
[~2022-10-18 13:11] MED LIST changes: +ALBU8.5H6 IH; +DOCU100C37 PO; +IBUP-844 PO; +OXC5T PO; -RT-ALBUINH IH
--- NOTE | 2022-10-18 13:35 | ED Abdominal Pain ---
General Chief Complaint: OB < 20 WEEKS Stated Complaint: 19 WEEKS PREG/CRAMPING Source of Information: Patient Exam Limitations: No Limitations History of Present Illness Date Seen by Provider: Oct 18, 2022 Time Seen by Provider: 13:33 Initial Comments Patient is a 21-year-old female who is currently 19 weeks who presents ED with lower pelvic cramping. This started around 7:00 this morning. The cramping is intermittent seems to be worse with walking, bending over. She does get some relief. Located suprapubic region. Patient is G3, P1 with a history of miscarriage, and history of early . Patient states she has had intermittent vomiting throughout this . No vomiting, diarrhea today. She does report some pressure with urination. No vaginal bleeding or vaginal discharge or concern for sexual transmitted infection. She denies taking thing for pain. She has had some similar type abdominal cramping throughout the . She currently follows up with Dr. Marcano her network operations manager. She states she had a positive ultrasound for intrauterine . Denies fever, chills, chest pain, shortness of breath, cough, history of gestational diabetes or hypertension. Allergies and Home Medications Allergies Coded Allergies: No Known Drug Allergies (Unverified , 09/07/13) Patient Home Medication List Home Medication List Reviewed: Yes Docusate Sodium (Docusate Sodium) 100 Mg Capsule, 100 MG PO BID Prescribed by: EDUARDO GARCIA on 01/28/22 1048 Ibuprofen (Ibu) 600 Mg Tablet, 600 MG PO Q8HR Prescribed by: EDUARDO GARCIA on 01/28/22 1048 Levothyroxine Sodium (Levothyroxine) 112 Mcg Capsule, 112 MCG PO, (Reported) Entered as Reported by: TYRELL JACKSON on 12/15/21 0212 Oxycodone Hcl (Oxyir Tablet) 5 Mg Tab, 5 MG PO Q4HR PRN for PAIN-SEE DOSE INSTRUCTIONS Prescribed by: EDUARDO GARCIA on 01/28/22 1049 Review of Systems Review of Systems Constitutional: No chills, No diaphoresis, No malaise, No weakness EENTM: No Blurred Vision, No Eye Pain Respiratory: Denies Cough, Denies Orthopnea Cardiovascular: Denies Chest Pain, Denies Edema Gastrointestinal: Denies Nausea, Denies Vomiting Genitourinary: Burning; Denies Discharge, Denies Drainage, Denies Frequency, Denies Flank Pain Musculoskeletal: No back pain All Other Systems Reviewed Negative Unless Noted: Yes Past [id number]-Mfpsmj-[id number] Hx Patient Social History Tobacco Use?: No Substance use?: No Alcohol Use?: No Pt feels they are or have been: No Immunizations Up To Date Tetanus Booster (TDap): Less than 5yrs PED Vaccines UTD: Yes Influenza Vaccine Up-to-Date: No; Not Current Seasonal Allergies Seasonal Allergies: No Past Medical History Surgery/Hospitalization HX: DENIES Surgeries: No Respiratory: No Cardiac: No Neurological: No Genitourinary: No Gastrointestinal: No Musculoskeletal: No Endocrine: No HEENT: No Cancer: No Did You Recieve Any Treatments: No Psychosocial: Yes ADD/ADHD, Anxiety, Depression Integumentary: No Blood Disorders: No Adverse Reaction/Blood Tranf: No Family Medical History No Pertinent Family Hx Physical Exam Vital Signs Vital Signs - First Documented 10/18/22 13:16 Temp 36.6 Pulse 83 Resp 22 B/P (MAP) 150/77 (101) Pulse Ox 98 O2 Delivery Room Air Capillary Refill : Height/Weight/BMI Height: 5'4.00" Weight: 145lbs. oz. 65.205594hh; 29.99 BMI Method:Stated General Appearance: WD/WN, no apparent distress HEENT: PERRL/EOMI, normal ENT inspection, TMs normal, pharynx normal Neck: non-tender, full range of motion, supple Respiratory: chest non-tender, lungs clear, normal breath sounds, no respiratory distress Cardiovascular: regular rate, rhythm, no edema, no gallop, no JVD Gastrointestinal: normal bowel sounds, non tender, soft, no organomegaly Extremities: normal range of motion, non-tender, normal inspection, no pedal edema, no calf tenderness Back: normal inspection, no CVA tenderness Neurologic/Psychiatric: sports agent II-XII nml as tested, no motor/sensory deficits, alert, normal mood/affect Skin: normal color Progress/Results/Core Measures Results/Orders Lab Results Laboratory Tests Test 10/18/22 13:38 Range/Units Urine Color YELLOW Urine Clarity CLOUDY Urine pH 6.5 5-9 Urine Specific [place] 1.025 H 1.016-1.022 Urine Protein NEGATIVE NEGATIVE Urine Glucose (UA) NEGATIVE NEGATIVE Urine Ketones NEGATIVE NEGATIVE Urine Nitrite NEGATIVE NEGATIVE Urine Bilirubin NEGATIVE NEGATIVE Urine Urobilinogen 0.2 < = 1.0 MG/DL Urine Leukocyte Esterase NEGATIVE NEGATIVE Urine RBC (Auto) NEGATIVE NEGATIVE Urine RBC NONE /HPF Urine WBC RARE /HPF Urine Squamous Epithelial Cells 0-2 /HPF Urine Crystals NONE /LPF Urine Bacteria TRACE /HPF Urine Casts NONE /LPF Urine Mucus NEGATIVE /LPF Urine Culture Indicated NO My Orders Orders - ZURI METZ Ua Culture If Indicated (10/18/22 13:21) Acetaminophen Tablet/Caplet (Tylenol T (10/18/22 13:45) Medications Given in ED Current Medications Medications Dose Ordered Sig/Rosaura Route Start Time Stop Time Status Last Admin Dose Admin Acetaminophen 650 mg ONCE ONCE PO 10/18/22 13:45 10/18/22 13:46 DC 10/18/22 13:41 650 MG Vital Signs/I&O 10/18/22 10/18/22 10/18/22 13:16 13:25 14:06 Temp 36.6 Pulse 83 81 83 Resp 22 18 B/P (MAP) 150/77 (101) 115/64 (81) 108/66 Pulse Ox 98 97 O2 Delivery Room Air Room Air Departure Communication (PCP) Reviewed previous ER visits, H&P, lab testing. G3, P1. History of miscarriage in early . Patient with lower pelvic pain that started today. No vaginal bleeding, vaginal discharge. Pressure with urination. Due to current complaint bedside ultrasound was performed which did note intrauterine cardiac activity 151 bpm. Patient was given dose of Tylenol. Suprapubic discomfort. No right lower quadrant right upper quadrant tenderness. Vital signs stable. Blood pressure within normal limits. Urinalysis without evidence of infection. No current vaginal bleeding or vaginal discharge. Not concern for sexual transmitted infection. Denies any vaginal pain. No evidence of surgical abdomen. Not necessarily concern for miscarriage at this time. She does not appear in acute distress. Concern for more round ligament type pain throughout her second trimester. Discussed Tylenol for cramping. Heating pad to help with cramping. Recommend rest for the next few days. She states she has been working more hours recently. Recommend follow-up with your MANNEQUIN COLORING ARTIST in the next 2 to 3 days for reevaluation. If any worsening pain, vaginal bleeding to return back to ED for further evaluation. Impression Primary Impression: Pelvic pain during Disposition: 01 HOME, SELF-CARE Condition: Stable Departure-Patient Inst. Decision time for Depature: 13:57 Referrals: YUMIKO MARCANO MD NO,LOCAL PHYSICIAN (PCP) Primary Care Physician Patient Instructions: Round Ligament Pain Add. Discharge Instructions: Recommend Tylenol for pain, heating pad for cramping. Recommend follow-up with your MANNEQUIN COLORING ARTIST in the next 2 to 3 days for reevaluation. Any worsening symptoms such as bleeding, abdominal pain return back to ED All discharge instructions reviewed with patient and/or family. Voiced understanding. Work/School Note: Work Release Form Date Seen in the Emergency Department: Oct 18, 2022 Return to Work: Oct 20, 2022 ZURI METZ Oct 18, 2022 13:35
[2022-10-18 13:43] LABS: BILIRUBIN,URINE NEGATIVE (NEGATIVE); CLARITY,URINE CLOUDY; COLOR,URINE YELLOW; GLUCOSE, URINE (UA) NEGATIVE (NEGATIVE); KETONES,URINE NEGATIVE (NEGATIVE); LEUKOCYTE ESTERASE ,URINE NEGATIVE (NEGATIVE); NITRITE,URINE NEGATIVE (NEGATIVE); PH,URINE 6.5 (5-9); PROTEIN,URINE NEGATIVE (NEGATIVE)
[2022-10-18] MEDS ORDERED: ACETAMINOPHEN 325 MG TABLET PO ONE (13:45)
[2022-10-18 13:54] LABS: BACTERIA,URINE TRACE /HPF; SQUAMOUS EPITHELIAL CELL,UR 0-2 /HPF; WBC,URINE RARE /HPF
[2022-10-18 14:06] VITALS: BP 108/66
== END 2022-10-18 14:07 | disposition home or self-care (01) ==
LOC: EDUNIT# 13:11 → ER 13:14
DX: O26.892 Other specified pregnancy related conditions, second trimester (principal); R10.2 Pelvic and perineal pain; Z28.310 Unvaccinated for COVID-19; Z3A.19 19 weeks gestation of pregnancy
CPT/HCPCS: 81000; 99283

== ENCOUNTER 2022-10-28 11:39 | Outpatient (CLI) | payer MEDICAID ==
[2022-10-28 12:00] VITALS: BP 114/55
[2022-10-28 12:14] VITALS: BP 114/55
[2022-10-28 12:26] LABS: BILIRUBIN,URINE NEGATIVE (NEGATIVE); CLARITY,URINE CLEAR; COLOR,URINE YELLOW; GLUCOSE, URINE (UA) NEGATIVE (NEGATIVE); KETONES,URINE NEGATIVE (NEGATIVE); LEUKOCYTE ESTERASE ,URINE NEGATIVE (NEGATIVE); NITRITE,URINE NEGATIVE (NEGATIVE); PH,URINE 7.5 (5-9); PROTEIN,URINE NEGATIVE (NEGATIVE)
[2022-10-28] MEDS ORDERED: PREN-172 PO (12:28)
[2022-10-28] MEDS ORDERED: LEVO125C4 PO (12:28)
[2022-10-28 12:35] LABS: BACTERIA,URINE FEW /HPF; WBC,URINE RARE /HPF
[2022-10-28 14:21] VITALS: BP 120/65
--- NOTE | 2022-10-28 15:41 | Diagnostic Imaging Report ---
INDICATION: Lower pelvic pain. TECHNIQUE: Multiple real-time grayscale images were obtained over the gravid uterus. COMPARISON: None. FINDINGS: There is a single live fetus in a cephalic presentation. heart rate was recorded at 155 BPM. Placenta is anterior. No previa is detected. Amniotic fluid index is 14 cm. Cervical length is 4.3 cm. kidneys, bladder, and stomach are unremarkable. brain is unremarkable. There is a four-chamber heart. There is a three-vessel cord with normal insertion. spine is unremarkable. Biometrical measurements are as follows: Biparietal 4.93 cm, age 21 weeks 0 days. Head circumference 18.77 cm, age 21 weeks 1 days. Abdominal circumference 15.90 cm, age 21 weeks 1 days. Femur length 3.43 cm, age 20 weeks 6 days. Sonographic estimate age: 21 weeks 1 days. Sonographic estimated date of delivery: 03/09/2023. Estimated Weight: 387 gm (+/- 57 gm). LMP percentile: 73%. heart rate: 155 beats per minute. number: 1 of 1. IMPRESSION: Single live IUP of approximately 21 weeks 1 day gestational age. Estimated date of confinement sonographically is 03/09/2023. Dictated by: Dictated on workstation # [id number]
--- NOTE | 2022-10-29 08:57 | Physician Query-Final Dx ---
YURIY,10/29/22 0857: Clinic Account Progress/Dx Physician Query: Please give diagnosis Please include # weeks gestation Date of Service Oct 28, 2022 at 11:39 CRISTAL MICHELE MD 10/30/22 2141: Clinic Account Progress/Dx DIAGNOSIS: Diagnosis Abdominal/pelvic pain complicating - resolved, ultrasound with no abnormalities Second trimester 20 weeks gestation History of IUFD History of delivery YURIY,JulOct 29, 2022 08:57 CRISTAL MICHELE MD Oct 30, 2022 21:41
== END 2022-10-28 15:45 | disposition home or self-care (01) ==
LOC: LDRP 11:39 → WSo 11:39
PROVIDERS: ATTEND Family Medicine
DX: O26.892 Other specified pregnancy related conditions, second trimester (principal); R10.2 Pelvic and perineal pain; R10.9 Unspecified abdominal pain; Z3A.21 21 weeks gestation of pregnancy
CPT/HCPCS: 76805; 81000; 87088; G0463; 99213